=== PATIENT | male | born 1990 | race Caucasian/White ===

== ENCOUNTER 2017-11-03 16:19 | Emergency (ER) | payer SELFPAY ==
[~2017-11-03] VITALS: Ht 188 cm; Wt 87.3 kg
[2017-11-03 16:28] VITALS: TEMP 98.3
[2017-11-03 17:04] LABS: COLLECTION METHOD CLEAN CATCH
[2017-11-03 17:09] LABS: BASO # 0.1 (0.0-0.2); BASO % 0.7 % (0.0-2.0); EOS # 0.3 (0.0-0.7); EOS % 3.9 % (0-4.0); GRAN # 4.5 (1.4-6.5); GRAN % 55.5 % (42.2-75.2); HEMATOCRIT 42.6 % (42.0-52.0); HEMOGLOBIN 14.6 g/dl (13.5-18.0); LYMPH # 2.6 (1.2-3.4); LYMPH % 32.1 % (20.0-51.0); MEAN CELL VOLUME 91 fl (80.0-100.0); MEAN CORPUSCULAR HEMOGLOBIN 31 pg (27.0-31.0); MEAN CORPUSCULAR HGB CONC 34 g/dl (33.0-37.0); MEAN PLATELET VOLUME 9.5 fl (7.4-10.4); MONO # 0.6 (0.1-0.6); MONO % 7.7 % (1.7-9.3); PLATELET COUNT 246 K/mm3 (130-400); REDCELL DISTRIBUTION WIDTH-CV 13.2 % (11.5-14.5)
[2017-11-03 17:14] LABS: PH 7 (5-8); SQUAMOUS EPITHELIAL None Seen /hpf; URINE APPEARANCE Clear; URINE BACTERIA None Seen /hpf; URINE BILIRUBIN Negative (NEGATIVE); URINE BLOOD Negative (NEGATIVE); URINE COLOR Straw; URINE GLUCOSE Negative (NEGATIVE); URINE KETONE Negative (NEGATIVE); URINE LEUKOCYTE ESTERASE Negative (NEGATIVE); URINE NITRATE Negative (NEGATIVE); URINE PROTEIN(semi-quant) Negative (NEGATIVE); URINE RBC 0-2 /hpf; URINE UROBILINOGEN Negative (NEGATIVE)
[2017-11-03 17:21] LABS: ALBUMIN 4.1 gm/dL (3.5-5.0); BILIRUBIN,TOTAL 0.3 mg/dL (0.0-1.0); C-REACTIVE PROTEIN 0.8 mg/dL (0.0-0.9); CALCIUM 9.5 mg/dL (8.4-10.2); CREATININE, serum 0.83 mg/dL (0.66-1.25); POTASSIUM 3.9 mmol/L (3.4-5.0)
[2017-11-03 17:40] VITALS: BP 124/78; PULSE 88
== END 2017-11-03 17:40 | disposition home or self-care (01) ==
LOC: COL.ER 16:19
PROVIDERS: Emergency Medicine
DX: R53.81 Other malaise (principal); R53.83 Other fatigue; F17.210 Nicotine dependence, cigarettes, uncomplicated
CPT/HCPCS: J1885; J2405; J7030

== ENCOUNTER 2018-02-04 16:42 | Emergency (ER) | payer SELFPAY ==
[~2018-02-04] VITALS: Ht 188 cm; Wt 95.5 kg
[2018-02-04 17:03] VITALS: TEMP 98.5
[2018-02-04 20:31] VITALS: BP 102/64; PULSE 81
== END 2018-02-04 20:31 | disposition home or self-care (01) ==
LOC: COL.ER 16:42
DX: M67.432 Ganglion, left wrist (principal)

== ENCOUNTER 2018-03-07 14:26 | Emergency (ER) | payer BC ==
[~2018-03-07] VITALS: Ht 188 cm; Wt 95.5 kg
[2018-03-07 14:27] VITALS: TEMP 99.3
[2018-03-07] MEDS ORDERED: ZITHROMAX Z PA250 MG PO (16:30)
[2018-03-07 16:52] VITALS: BP 113/72; PULSE 82
== END 2018-03-07 16:52 | disposition home or self-care (01) ==
LOC: COL.ER 14:26
DX: B34.9 Viral infection, unspecified (principal); F17.210 Nicotine dependence, cigarettes, uncomplicated
CPT/HCPCS: J7030

== ENCOUNTER 2018-04-18 15:26 | Emergency (ER) | payer BC ==
[~2018-04-18] VITALS: Ht 188 cm; Wt 85.5 kg
[~2018-04-18 15:26] MED LIST: ZITHROMAX Z PA250 MG PO
[2018-04-18 15:37] VITALS: TEMP 98.2
[2018-04-18 15:46] LABS: COLLECTION METHOD CLEAN CATCH
[2018-04-18] MEDS ORDERED: EFFEXOR XR75 MG/CAP PO (15:46)
[2018-04-18 15:59] LABS: PH 7 (5-8); SQUAMOUS EPITHELIAL None Seen /hpf; URINE APPEARANCE Clear; URINE BACTERIA None Seen /hpf; URINE BILIRUBIN Negative (NEGATIVE); URINE BLOOD Negative (NEGATIVE); URINE COLOR Straw; URINE GLUCOSE Negative (NEGATIVE); URINE KETONE Negative (NEGATIVE); URINE LEUKOCYTE ESTERASE Negative (NEGATIVE); URINE NITRATE Negative (NEGATIVE); URINE PROTEIN(semi-quant) Negative (NEGATIVE); URINE RBC 0-2 /hpf; URINE UROBILINOGEN Negative (NEGATIVE)
[2018-04-18 16:11] LABS: BASO # 0.1 (0.0-0.2); BASO % 0.6 % (0.0-2.0); EOS # 0.2 (0.0-0.7); EOS % 2.2 % (0-4.0); GRAN # 5.1 (1.4-6.5); GRAN % 64.5 % (42.2-75.2); HEMATOCRIT 42.8 % (42.0-52.0); LYMPH % 25.9 % (20.0-51.0); MEAN CELL VOLUME 90 fl (80.0-100.0); MEAN CORPUSCULAR HEMOGLOBIN 32 pg (27.0-31.0); MEAN CORPUSCULAR HGB CONC 35 g/dl (33.0-37.0); MEAN PLATELET VOLUME 9.2 fl (7.4-10.4); MONO # 0.5 (0.1-0.6); MONO % 6.5 % (1.7-9.3); PLATELET COUNT 257 K/mm3 (130-400); RED BLOOD COUNT 4.76 M/mm3 (4.20-5.60); REDCELL DISTRIBUTION WIDTH-CV 13.3 % (11.5-14.5)
[2018-04-18 16:23] LABS: ALANINE AMINOTRANSFERASE 29 U/L (21-72); ALBUMIN 4.2 gm/dL (3.5-5.0); ALKALINE PHOSPHATASE 56 U/L (50-136); ANION GAP 7 mmol/L (7-16); AST,SGOT 23 U/L (15-37); BILIRUBIN,TOTAL 0.3 mg/dL (0.0-1.0); BLOOD UREA NITROGEN 8 mg/dL (9-20); CALCIUM 9.9 mg/dL (8.4-10.2); CARBON DIOXIDE 29 mmol/L (22-30); CHLORIDE 104 mmol/L (98-107); CREATININE, serum 0.85 mg/dL (0.66-1.25); GLUCOSE 93 mg/dL (74-106); POTASSIUM 3.9 mmol/L (3.4-5.0); SODIUM 140 mmol/L (137-145)
[2018-04-18 16:30] LABS: C-REACTIVE PROTEIN < 0.5 mg/dL (0.0-0.9)
[2018-04-18] MEDS ORDERED: NORCO 325 MG-51 TAB PO (17:29)
[2018-04-18] MEDS ORDERED: DOXYCYCLINE 10100 MG PO (17:29)
[2018-04-18 17:56] VITALS: BP 114/77; PULSE 77
== END 2018-04-18 17:55 | disposition home or self-care (01) ==
LOC: COL.ER 15:26
PROVIDERS: Emergency Medicine
DX: N45.1 Epididymitis (principal)
CPT/HCPCS: J0696; J1885; J2405; J3010; J7030

== ENCOUNTER 2018-09-15 11:15 | Emergency (ER) | payer BC ==
[~2018-09-15] VITALS: Ht 188 cm; Wt 90.9 kg
[~2018-09-15 11:15] MED LIST changes: +DOXYCYCLINE 10100 MG PO; +EFFEXOR XR75 MG/CAP PO; +NORCO 325 MG-51 TAB PO
[2018-09-15 11:24] VITALS: TEMP 97.3
[2018-09-15 11:29] LABS: COLLECTION METHOD CLEAN CATCH
[2018-09-15] MEDS ORDERED: LEVAQUIN 5500 MG/TA1 PO (11:38)
[2018-09-15 11:44] LABS: PH 7 (5-8); SQUAMOUS EPITHELIAL None Seen /hpf; URINE APPEARANCE Clear; URINE BACTERIA None Seen /hpf; URINE BILIRUBIN Negative (NEGATIVE); URINE BLOOD Negative (NEGATIVE); URINE COLOR Yellow; URINE GLUCOSE Negative (NEGATIVE); URINE KETONE Negative (NEGATIVE); URINE LEUKOCYTE ESTERASE Negative (NEGATIVE); URINE NITRATE Negative (NEGATIVE); URINE PROTEIN(semi-quant) Negative (NEGATIVE); URINE RBC None Seen /hpf; URINE UROBILINOGEN Negative (NEGATIVE)
[2018-09-15 12:00] LABS: BASO % 0.6 % (0.0-2.0); EOS # 0.4 (0.0-0.7); EOS % 5.6 % (0-4.0); GRAN # 3.5 (1.4-6.5); GRAN % 53.3 % (42.2-75.2); HEMATOCRIT 46.9 % (42.0-52.0); HEMOGLOBIN 16.2 g/dl (13.5-18.0); LYMPH # 2.1 (1.2-3.4); LYMPH % 31.3 % (20.0-51.0); MEAN CELL VOLUME 91 fl (80.0-100.0); MEAN CORPUSCULAR HEMOGLOBIN 31 pg (27.0-31.0); MEAN CORPUSCULAR HGB CONC 35 g/dl (33.0-37.0); MEAN PLATELET VOLUME 9.2 fl (7.4-10.4); MONO # 0.6 (0.1-0.6); MONO % 8.9 % (1.7-9.3); PLATELET COUNT 238 K/mm3 (130-400); RED BLOOD COUNT 5.18 M/mm3 (4.20-5.60)
[2018-09-15 12:15] LABS: ALBUMIN 3.8 gm/dL (3.5-5.0); BILIRUBIN,TOTAL 0.5 mg/dL (0.0-1.0); CALCIUM 9.5 mg/dL (8.4-10.2); CREATININE, serum 0.9 (0.66-1.25); POTASSIUM 4.3 mmol/L (3.4-5.0); TOTAL PROTEIN 6.2 gm/dL (6.4-8.2)
[2018-09-15 14:30] VITALS: BP 108/68; PULSE 74
== END 2018-09-15 14:48 | disposition home or self-care (01) ==
LOC: COL.ER 11:15
PROVIDERS: Emergency Medicine
DX: N50.82 Scrotal pain (principal)
CPT/HCPCS: J2270; J2405

== ENCOUNTER → 2018-10-25 | Outpatient (CLI) | payer BC ==
[~2018-10-25] MED LIST changes: +AMOXICILLIN 25250 MG PO; +DOXYCYCLINE HY100 MG PO; +LEVAQUIN 5500 MG/TA1 PO; +TORADOL 10MG TA10 MG PO
== END ==
LOC: COL.RAD 13:54
DX: N50.3 Cyst of epididymis (principal); N50.82 Scrotal pain

== ENCOUNTER 2018-10-28 16:26 | Emergency (ER) | payer BC ==
[~2018-10-28] VITALS: Ht 188 cm; Wt 95.9 kg
[~2018-10-28 16:26] MED LIST changes: -AMOXICILLIN 25250 MG PO; -DOXYCYCLINE HY100 MG PO; -TORADOL 10MG TA10 MG PO
[2018-10-28 16:33] VITALS: TEMP 98
[2018-10-28] MEDS ORDERED: TORADOL 10MG TA10 MG PO (16:43)
[2018-10-28] MEDS ORDERED: AMOXICILLIN 25250 MG PO (16:43)
[2018-10-28 17:07] LABS: BASO # 0.1 (0.0-0.2); BASO % 0.8 % (0.0-2.0); EOS # 0.2 (0.0-0.7); EOS % 2.1 % (0-4.0); GRAN # 5.5 (1.4-6.5); GRAN % 60.9 % (42.2-75.2); HEMOGLOBIN 15.8 g/dl (13.5-18.0); LYMPH # 2.7 (1.2-3.4); LYMPH % 29.7 % (20.0-51.0); MEAN CELL VOLUME 89 fl (80.0-100.0); MEAN CORPUSCULAR HEMOGLOBIN 31 pg (27.0-31.0); MEAN CORPUSCULAR HGB CONC 35 g/dl (33.0-37.0); MEAN PLATELET VOLUME 9.4 fl (7.4-10.4); MONO # 0.6 (0.1-0.6); MONO % 6.2 % (1.7-9.3); PLATELET COUNT 263 K/mm3 (130-400); RED BLOOD COUNT 5.07 M/mm3 (4.20-5.60); REDCELL DISTRIBUTION WIDTH-CV 13.1 % (11.5-14.5)
[2018-10-28 17:20] LABS: ALANINE AMINOTRANSFERASE 44 U/L (21-72); ALBUMIN 4.2 gm/dL (3.5-5.0); ALKALINE PHOSPHATASE 38 U/L (50-136); ANION GAP 12 mmol/L (7-16); AST,SGOT 36 U/L (15-37); BILIRUBIN,TOTAL 0.4 mg/dL (0.0-1.0); BLOOD UREA NITROGEN 9 mg/dL (9-20); CALCIUM 9.5 mg/dL (8.4-10.2); CARBON DIOXIDE 25 mmol/L (22-30); CHLORIDE 104 mmol/L (98-107); CREATININE, serum 0.88 (0.66-1.25); GLUCOSE 81 mg/dL (74-106); LIPASE 57 U/L (23-300); SODIUM 141 mmol/L (137-145); TOTAL PROTEIN 6.8 gm/dL (6.4-8.2)
[2018-10-28 17:27] LABS: COLLECTION METHOD CLEAN CATCH
[2018-10-28 17:33] LABS: PH 7 (5-8); SQUAMOUS EPITHELIAL None Seen /hpf; URINE APPEARANCE Clear; URINE BACTERIA None Seen /hpf; URINE BILIRUBIN Negative (NEGATIVE); URINE BLOOD Negative (NEGATIVE); URINE COLOR Colorless; URINE GLUCOSE Negative (NEGATIVE); URINE KETONE Negative (NEGATIVE); URINE LEUKOCYTE ESTERASE Negative (NEGATIVE); URINE NITRATE Negative (NEGATIVE); URINE PROTEIN(semi-quant) Negative (NEGATIVE); URINE RBC None Seen /hpf; URINE UROBILINOGEN Negative (NEGATIVE)
[2018-10-28 17:52] LABS: C-REACTIVE PROTEIN < 0.5 mg/dL (0.0-0.9)
[2018-10-28] MEDS ORDERED: NORCO 325 MG-51 TAB PO (18:40)
[2018-10-28 18:51] VITALS: BP 118/90; PULSE 93
[2018-10-28] MEDS ORDERED: DOXYCYCLINE HY100 MG PO (19:19)
== END 2018-10-28 18:54 | disposition home or self-care (01) ==
LOC: COL.ER 16:26
PROVIDERS: Emergency Medicine
DX: N50.819 Testicular pain, unspecified (principal); G89.29 Other chronic pain; Z87.891 Personal history of nicotine dependence
CPT/HCPCS: J1885; J2270; J2405; J7030